=== PATIENT | male | born 1985 | race Two or more races ===

== ENCOUNTER 2025-01-01 12:03 | Emergency (ER) | payer MEDICAID ==
[~2025-01-01] VITALS: Ht 177.8 cm; Wt 77.5 kg
[2025-01-01 12:10] VITALS: BP 159/87; PULSE 78; RESP 18; O2SAT 99
[2025-01-01] MEDS ORDERED: IBUP-1986 PO (14:00)
[2025-01-01] MEDS ORDERED: ACET-1025 PO (14:00)
--- NOTE | 2025-01-01 14:01 | Physician Documentation ---
HPI ~ General Chief Complaint: Tooth Problem Stated Complaint: TOOTH PAIN Time Seen by MD: 12:33 Primary Medical Doctor: none History of Present Illness HPI Comment Patient is seen today with complaints of painful and swelling left lower molar. Patient states this started this few days ago. He denies any fevers or chills or chest pain or shortness of breath or abdominal pain or nausea, vomiting, diarrhea. He has no other concern or complaint at this time. Medication Reconciliation Allergies: Coded Allergies: sulfamethoxazole (Verified Allergy, Unknown, 01/01/25) trimethoprim (Verified Allergy, Unknown, 01/01/25) Past Medical History Past Medical History: No Pertinent History Past Surgical History: no surgical history Drug Use: none Lives In: Home Occupation: employed Review of Systems Constitutional: Denies: chills, fever, weakness Eyes: Denies: pain, blurred vision ENT: Denies: ear pain, nose pain, throat pain, mouth pain Respiratory: Denies: cough, shortness of breath Cardiovascular: Denies: chest pain, palpitations Gastrointestinal: Denies: abdominal pain, nausea, vomiting Genitourinary: Denies: burning, dysuria Male Genitalia: Denies: penile discharge, testicular pain Neurological: Denies: headache, dizziness Musculoskeletal: Denies: pain, swelling Integumentary: Denies: rash, lesions Allergic/Immunologic: Denies: hives, itching Hematologic/Lymphatic: Denies: no symptoms reported Psychiatric: Denies: depression, anxiety Physical Exam Vital Signs: Temperature: 97.9, Source: Temporal, Heart Rate: 78, Respiratory Rate: 18, BP: 159/87, Pulse Oximetry: 99, Weight: 77.500 Physical Exam General: Awake and Alert, no acute distress. HEENT: Patient on exam does have very poor dentition with multiple dental caries and rotten teeth and broken teeth. Patient does have swelling of gums of left lower jaw. Conjunctiva pink, Sclera clear, Mucus Membranes moist. Neck: Supple without masses and tenderness. Resp: Unlabored. Lungs clear to auscultation bilaterally. Heart: Regular Rate and rhythm, normal S1 and S2 without murmur, rub or gallop. Extremities: No cyanosis,clubbing or edema. Skin: Warm and Dry. Progress Results/Orders Results/Orders Vital Signs 01/01/25 12:10 Temp 97.9 Pulse 78 Resp 18 B/P (MAP) 159/87 Pulse Ox 99 Medical Decision Making Findings Patient is seen today with complaints of painful and swelling left lower molar. Patient states this started this few days ago. He denies any fevers or chills or chest pain or shortness of breath or abdominal pain or nausea, vomiting, diarrhea. He has no other concern or complaint at this time. Shared decision-making utilized with the patient today. Prescription of amoxicillin 875 mg, one tab twice a day sent to patient's pharmacy for 10 days. Prescription of ibuprofen 800 also sent to patient's pharmacy. And Tylenol to be taken as prescribed. Patient will follow up with dentist as soon as p ossible. Return to ED with any worsening, concerning or changing symptoms. Departure Disposition: HOME / SELF CARE / HOMELESS Impression: Primary Impression: Dental abscess Additional Impression: Dental caries Condition: Stable Discharge Instructions: Dental Pain, Dental Abscess Additional Instructions: Shared decision-making utilized with the patient today. Prescription of amoxicillin 875 mg, one tab twice a day sent to patient's pharmacy for 10 days. Prescription of ibuprofen 800 also sent to patient's pharmacy. And Tylenol to be taken as prescribed. Patient will follow up with dentist as soon as possible. Return to ED with any worsening, concerning or changing symptoms. Referrals: NO PRIMARY CARE PROVIDER (PCP) Prescriptions Acetaminophen (Tylenol Extra Strength) 500 Mg Tablet 2 TAB PO Q6H PRN PRN for pain or fever for 7 Days, #56 TAB Prov: BARRINGTON ABEL 01/01/25 Acetaminophen (Tylenol Extra Strength) 500 Mg Tablet 2 TAB PO Q6H PRN PRN for pain or fever for 7 Days, #56 TAB Prov: BARRINGTON ABEL 01/01/25 Ibuprofen (Ibuprofen) 800 Mg Tablet 1 TAB PO Q8H for pain for 10 Days, #30 TAB 0 Refills Prov: BARRINGTON ABEL 01/01/25 Signature Scribe Signature: No scribe Attestation: No scribe BARRINGTON ABEL Jan 01, 2025 14:01
[2025-01-01] MEDS ORDERED: AMOX875T10 PO (14:22)
[2025-01-01 14:25] VITALS: TEMP 97.9
== END 2025-01-01 14:27 | disposition home or self-care (01) ==
LOC: ER 12:04
DX: K04.7 Periapical abscess without sinus (principal); K02.9 Dental caries, unspecified; Z88.1 Allergy status to other antibiotic agents; Z88.2 Allergy status to sulfonamides
CPT/HCPCS: 99282; 99283